=== PATIENT | male | born 1955 | race American Indian/Alaskan Native ===

== ENCOUNTER 2021-11-23 20:27 | Emergency (ER) | payer SELFPAY ==
--- NOTE | 2021-11-23 22:09 | Emergency Department Report ---
ED General Adult HPI - General Chief complaint: Skin Rash Stated complaint: rash Time Seen by Provider: 11/23/21 21:14 Source: patient, family, RN notes reviewed Mode of arrival: Ambulatory Limitations: No Limitations - History of Present Illness Initial comments: The patient is a 66-year-old gentleman, who does not have a local primary care doctor, and does not know if he has any chronic medical conditions. He presents to the ER today with a complaint of burning pruritic rash to the right side of his face, above the right eyebrow, and not involving the right eye itself. He thinks that he hit a branch a few days ago, and thinks that he might be having allergic reaction. As per his significant other, the patient does not have a primary care doctor, and he has not had his shingles vaccine. He denies additional injuries and complaints -: days(s) Location: face Quality: burning Consistency: constant Improves with: none Worsens with: other (Movement and palpation) Associated Symptoms: denies other symptoms - Related Data Previous Rx's Medication Instructions Recorded Last Taken Type Acetaminophen [Non-Aspirin Extra 500 mg PO Q6HR PRN #30 tablet 11/23/21 Unknown Rx Strength] Ibuprofen [Motrin] 600 mg PO Q8H PRN #30 tablet 11/23/21 Unknown Rx Ondansetron [Zofran Odt] 4 mg PO Q8HR PRN #20 tab.rapdis 11/23/21 Unknown Rx Valacyclovir HCl [Valtrex] 1,000 mg PO TID 7 Days #21 tab 11/23/21 Unknown Rx ED Review of Systems ROS: Stated complaint: HEAD/FACE INJURY HIT TREE Other details as noted in HPI Comment: All other systems reviewed and negative Skin: rash, lesions ED Past Medical Hx - Medications Home Medications: Home Medications Medication Instructions Recorded Confirmed Last Taken Type Acetaminophen [Non-Aspirin Extra 500 mg PO Q6HR PRN #30 tablet 11/23/21 Unknown Rx Strength] Ibuprofen [Motrin] 600 mg PO Q8H PRN #30 tablet 11/23/21 Unknown Rx Ondansetron [Zofran Odt] 4 mg PO Q8HR PRN #20 tab.rapdis 11/23/21 Unknown Rx Valacyclovir HCl [Valtrex] 1,000 mg PO TID 7 Days #21 tab 11/23/21 Unknown Rx ED Physical Exam - General Limitations: No Limitations General appearance: alert, in no apparent distress - Head Head exam: Present: normocephalic, other (On the right side V1 distribution, there is a zoster-like rash, with vesicles. There is no ocular involvement. There is no superinfection.) - Eye Eye exam: Present: normal appearance, PERRL, EOMI. Absent: nystagmus - ENT ENT exam: Present: normal exam, normal orophraynx, mucous membranes moist, TM's normal bilaterally, normal external ear exam - Neck Neck exam: Present: normal inspection, full ROM. Absent: tenderness, meningismus - Respiratory Respiratory exam: Present: normal lung sounds bilaterally. Absent: respiratory distress, wheezes, rales, rhonchi, stridor, decreased breath sounds - Cardiovascular Cardiovascular Exam: Present: normal rhythm, bradycardia, normal heart sounds. Absent: tachycardia, irregular rhythm, systolic murmur, diastolic murmur, rubs, gallop - GI/Abdominal GI/Abdominal exam: Present: soft. Absent: distended, tenderness, guarding, rebound, rigid, pulsatile mass - Rectal Rectal exam: Present: deferred - Extremities Exam Extremities exam: Present: normal inspection (Upper extremity vitiligo noted), full ROM, other (2+ pulses noted in the bilateral upper extremities. There is no long bony tenderness. The muscular compartments are soft. The pelvis is stable). Absent: pedal edema, calf tenderness - Back Exam Back exam: Present: normal inspection. Absent: tenderness, CVA tenderness (R), CVA tenderness (L), paraspinal tenderness, vertebral tenderness - Neurological Exam Neurological exam: Present: alert, normal gait, other (No facial droop. Tongue midline. Extraocular movements intact bilaterally. Facial sensation intact to light touch in V1, V2, V3 distribution bilaterally. 5 and a 5 strength in 4 extremities. Sensation intact to light touch in 4 extremities.). Absent: motor sensory deficit - Psychiatric Psychiatric exam: Present: normal affect, normal mood - Skin Skin exam: Present: warm, dry, rash, vesicles. Absent: diaphoretic, urticaria, abrasion, ecchymosis ED Course Vital Signs 11/23/21 20:55 Temperature 98.3 F Pulse Rate 50 L Respiratory 16 Rate Blood Pressure 179/100 O2 Sat by Pulse 99 Oximetry ED Medical Decision Making - Lab Data Vital Signs 11/23/21 20:55 Temperature 98.3 F Pulse Rate 50 L Respiratory 16 Rate Blood Pressure 179/100 O2 Sat by Pulse 99 Oximetry - Medical Decision Making Differential diagnosis, including but not limited to: Zoster, shingles Assessment and plan: 66-year-old gentleman with isolated vesicular lesion in the right sided V1 distribution, without ocular involvement, likely shingles. Patient and family educated on the natural history of zoster. Start Valtrex, Tylenol, Motrin, outpatient follow-up. Elevated blood pressure reviewed and appreciated, please reference the [employer] clinical policy on asymptomatic hypertension. Strongly encouraged to follow-up as an outpatient with a primary care doctor to initiate primary care. Return precautions are reviewed. All questions answered Critical care attestation.: If time is entered above; I have spent that time in minutes in the direct care of this critically ill patient, excluding procedure time. ED Disposition Clinical Impression: Rash, Elevated blood pressure reading Disposition: HOME / SELF CARE / HOMELESS Is pt being admited?: No Does the pt Need Aspirin: No Condition: Good Instructions: Shingles, [id number] Additional Instructions: Rash on the face is likely shingles/zoster. Apply warm and cool compresses as often as as needed for physical pain, patient may also take [id number] Benadryl/diphenhydramine as needed for itching, or [id number] famotidine/Pepcid as needed for itching. It is strongly recommended the patient follow-up with a primary care doctor to initiate primary care with an outpatient physician within the next 2 weeks. Patient is found to have elevated blood pressure today, please follow-up with the primary care doctor for this. Long-term complications of hypertension and elevated blood pressure include stroke, heart attack, disability, paralysis, and loss of quality of life. Take the valacyclovir as prescribed, and use the [employer] affordable prescription card, or application on smart phone, to obtain affordable prescriptions. Patient may take the prescribed Tylenol and/or Motrin as needed for physical pain. This medication may cause nausea, vomiting, diarrhea or cramping, so take the nausea medication as needed Take care to not contact anyone else physically with the skin affected, and avoid the very young, very elderly, and those with compromised immune systems. Please return to the emergency room right away with new pain, worsened pain, migration of pain, projectile vomiting, change in mental status, confusion, inability tolerate liquid feeds, new, worsened or different symptoms not present on the initial emergency room evaluation Referrals: [facility] [Provider Group] - 3-5 Days [facility] [Provider Group] - 3-5 Days [facility] [Outside] - 3-5 Days Forms: Work/School Release Form(ED)
[2021-11-23 22:48] VITALS: BP 164/96
[2021-11-23] MEDS ORDERED: ACETAMINOPHEN 325 MG TAB PO ONE (23:03)
[2021-11-23] MEDS ORDERED: IBUPROFEN 400 MG TAB PO ONE (23:03)
[2021-11-23] MEDS ORDERED: valACYclovir 500 MG TAB PO ONE (23:03)
== END 2021-11-23 22:48 | disposition home or self-care (01) ==
LOC: ED 20:27
DX: R21 Rash and other nonspecific skin eruption (principal); I10 Essential (primary) hypertension
CPT/HCPCS: 99282